=== PATIENT | female | born 2000 | race American Indian/Alaskan Native ===

== ENCOUNTER 2018-03-07 21:45 | Emergency (ER) | payer OTHER ==
[2018-03-07] MEDS ORDERED: DUONEB *Not for PRN Use IH ONE (22:04)
[2018-03-07 22:59] LABS: BUN/Creatinine Ratio 9; Blood Urea Nitrogen 6 mg/dL (7-17); Calcium 8.9 mg/dL (8.4-10.2); Hemolysis Index 2
[2018-03-07 23:09] LABS: Hematocrit 38.5 % (30.3-42.9); Hemoglobin 13.4 gm/dl (10.1-14.3); Mean Corpuscular HGB Conc 35 % (30-34); Mean Corpuscular Hemoglobin 31 pg (28-32); Mean Corpuscular Volume 88 fl (79-97); Red Blood Count 4.39 M/mm3 (3.65-5.03); Red Cell Distribution Width 13.7 % (13.2-15.2)
[2018-03-07 23:10] LABS: Basophils % (Auto) 0.2 % (0.0-1.8); Eosinophils # (Auto) 0.3 K/mm3 (0.0-0.4); Eosinophils % (Auto) 2.5 % (0.0-4.3); Monocytes # (Auto) 0.5 K/mm3 (0.0-0.8); Monocytes % (Auto) 4.2 % (0.0-7.3); Platelet Count 299 K/mm3 (140-440)
--- NOTE | 2018-03-07 23:59 | XRay Report ---
FINAL REPORT PROCEDURE: XR CHEST ROUTINE 2V TECHNIQUE: PA and lateral chest radiographs were obtained. CPT 07028 HISTORY: Shortness of breath COMPARISON: No prior studies are available for comparison. FINDINGS: Heart: Normal. Mediastinum/Vessels: Normal. Lungs/Pleural space: Normal. Bony thorax: No acute osseous abnormality. Other: IMPRESSION: Normal examination.
[2018-03-08] MEDS ORDERED: TYLENOL PO ONE (01:03)
[2018-03-08] MEDS ORDERED: TESSALON PERLES PO ONE (01:04)
[2018-03-08] MEDS ORDERED: MAGNESIUM SULFATE 2GM/50ML 2 GM/50 ML BAG IV ONE (01:04)
[2018-03-08] MEDS ORDERED: XOPENEX IH ONE (01:04)
[2018-03-08] MEDS ORDERED: ATROVENT IH ONE (01:04)
--- NOTE | 2018-03-08 01:30 | Emergency Department Report ---
ED Shortness of Breath HPI - General Chief Complaint: Dyspnea/Respdistress Stated Complaint: CHEST,STOMACH PAIN,ASTHMA Time Seen by Provider: 03/08/18 00:49 Source: patient Mode of arrival: Ambulatory Limitations: No Limitations - History of Present Illness Initial Comments: 18-year-old female the past medical history of type 2 diabetes and asthma presents to the hospital complaints of 3 days of wheezing and shortness of breath. No improvement with home treatments. She is not currently on steroids. Cough initially productive but now nonproductive. She complains of chest pressure and tightness as well as generalized abdominal soreness secondary to coughing spells. Patient recently traveled here from [place] via car 9 days ago. She denies pleuritic chest pain, calf tenderness, or unilateral leg edema. Patient states she has a history of baseline tachycardia in the past. No c/o fever but low-grade temp noted here in the ED. Denies previous history of intubations. - Related Data Previous Rx's Medication Instructions Recorded Last Taken Type ALBUTEROL NEB's [Proventil 0.083% 2.5 mg IH TID PRN #30 neb 03/08/18 Unknown Rx NEBS] Azithromycin [Zithromax Z-ЕЛЕНА] 1 dose PO DAILY 5 Days tab 03/08/18 Unknown Rx Benzonatate [Tessalon Perles] 100 mg PO Q8HR PRN #30 capsule 03/08/18 Unknown Rx predniSONE [Deltasone] 40 mg PO QDAY 5 Days tab 03/08/18 Unknown Rx Allergies Allergy/AdvReac Type Severity Reaction Status Date / Time No Known Allergies Allergy Verified 03/07/18 21:59 ED Review of Systems ROS: Stated complaint: CHEST,STOMACH PAIN,ASTHMA Other details as noted in HPI Comment: All other systems reviewed and negative ED Past Medical Hx - Past Medical History Previous Medical History?: Yes Hx Diabetes: Yes (type 2) Hx Asthma: Yes - Surgical History Past Surgical History?: No - Social History Smoking Status: Never Smoker Substance Use Type: None - Medications Home Medications: Home Medications Medication Instructions Recorded Confirmed Last Taken Type ALBUTEROL NEB's [Proventil 0.083% 2.5 mg IH TID PRN #30 neb 03/08/18 Unknown Rx NEBS] Azithromycin [Zithromax Z-ЕЛЕНА] 1 dose PO DAILY 5 Days tab 03/08/18 Unknown Rx Benzonatate [Tessalon Perles] 100 mg PO Q8HR PRN #30 capsule 03/08/18 Unknown Rx predniSONE [Deltasone] 40 mg PO QDAY 5 Days tab 03/08/18 Unknown Rx ED Physical Exam - General Limitations: No Limitations - Other Other exam information: General: No limitations, patient is alert in no acute distress Head exam: Atraumatic, normocephalic Eyes exam: Normal appearance, pupils equal reactive to light, extraocular movements intact ENT: Moist mucous membrane, normal oropharynx Neck exam: Normal inspection, full range of motion, no meningismus nontender Respiratory exam: Frequent dry cough, end expiratory wheezing Cardiovascular: Tachycardic regular rhythm Abdomen: Soft, nondistended, mild generalized tenderness, with normal bowel sounds, no rebound, or guarding Extremity: Full range of motion normal inspection no deformity, no calf tenderness or edema Back: Normal Inspection, full range of motion, no tenderness Neurologic: Alert, oriented x3, cranial nerves intact, no motor or sensory deficit Psychiatric: normal affect, normal mood Skin: Warm, dry, intact ED Course Vital Signs 03/07/18 03/07/18 03/08/18 21:49 22:00 00:52 Temperature 100.0 F H 100 F H Pulse Rate 123 H 123 H Pulse Rate [ Anterior Bilateral Throughout] Respiratory 24 16 14 Rate Respiratory Rate [Anterior Bilateral Throughout] Blood Pressure 163/107 163/107 Blood Pressure [Left] O2 Sat by Pulse 98 97 Oximetry 03/08/18 03/08/18 03/08/18 00:59 01:00 01:30 Temperature 99.7 F H Pulse Rate 118 H 115 H Pulse Rate [ 120 H Anterior Bilateral Throughout] Respiratory 17 19 Rate Respiratory 24 Rate [Anterior Bilateral Throughout] Blood Pressure 139/73 Blood Pressure 142/65 [Left] O2 Sat by Pulse 98 94 Oximetry 03/08/18 03/08/18 03/08/18 01:50 02:00 03:00 Temperature Pulse Rate 121 H 106 H Pulse Rate [ 126 H Anterior Bilateral Throughout] Respiratory 13 42 H Rate Respiratory 24 Rate [Anterior Bilateral Throughout] Blood Pressure 105/80 108/40 Blood Pressure [Left] O2 Sat by Pulse 98 95 Oximetry 03/08/18 03:58 Temperature Pulse Rate Pulse Rate [ Anterior Bilateral Throughout] Respiratory 23 Rate Respiratory Rate [Anterior Bilateral Throughout] Blood Pressure Blood Pressure [Left] O2 Sat by Pulse Oximetry ED Medical Decision Making - Lab Data Result diagrams: 03/07/18 22:13 03/07/18 22:13 Lab Results 03/07/18 03/07/18 03/07/18 Range/Units 22:13 22:13 22:13 WBC 10.6 (4.5-11.0) K/mm3 RBC 4.39 (3.65-5.03) M/mm3 Hgb 13.4 (10.1-14.3) gm/dl Hct 38.5 (30.3-42.9) % MCV 88 (79-97) fl MCH 31 (28-32) pg MCHC 35 H (30-34) % RDW 13.7 (13.2-15.2) % Plt Count 299 (140-440) K/mm3 Lymph % (Auto) 9.0 L (13.4-35.0) % Woodruff % (Auto) 4.2 (0.0-7.3) % Eos % (Auto) 2.5 (0.0-4.3) % Baso % (Auto) 0.2 (0.0-1.8) % Lymph # 1.0 L (1.2-5.4) K/mm3 Woodruff # 0.5 (0.0-0.8) K/mm3 Eos # 0.3 (0.0-0.4) K/mm3 Baso # 0.0 (0.0-0.1) K/mm3 Add Manual Diff Complete Seg Neutrophils % 84.1 H (40.0-70.0) % Seg Neutrophils # 8.9 H (1.8-7.7) K/mm3 D-Dimer (0-234) ng/mlDDU Sodium 138 (137-145) mmol/L Potassium 3.5 L (3.6-5.0) mmol/L Chloride 100.1 (98-107) mmol/L Carbon Dioxide 23 (22-30) mmol/L Anion Gap 18 mmol/L BUN 6 L (7-17) mg/dL Creatinine 0.7 (0.7-1.2) mg/dL Estimated GFR > 60 ml/min BUN/Creatinine Ratio 9 % Glucose 177 H (65-100) mg/dL Calcium 8.9 (8.4-10.2) mg/dL Troponin T < 0.010 (0.00-0.029) ng/mL TSH (0.270-4.200) mlU/mL Free T4 (0.76-1.46) ng/dL HCG, Qual Negative (Negative) 03/08/18 03/08/18 Range/Units 01:29 01:29 WBC (4.5-11.0) K/mm3 RBC (3.65-5.03) M/mm3 Hgb (10.1-14.3) gm/dl Hct (30.3-42.9) % MCV (79-97) fl MCH (28-32) pg MCHC (30-34) % RDW (13.2-15.2) % Plt Count (140-440) K/mm3 Lymph % (Auto) (13.4-35.0) % Woodruff % (Auto) (0.0-7.3) % Eos % (Auto) (0.0-4.3) % Baso % (Auto) (0.0-1.8) % Lymph # (1.2-5.4) K/mm3 Woodruff # (0.0-0.8) K/mm3 Eos # (0.0-0.4) K/mm3 Baso # (0.0-0.1) K/mm3 Add Manual Diff Seg Neutrophils % (40.0-70.0) % Seg Neutrophils # (1.8-7.7) K/mm3 D-Dimer 231.49 (0-234) ng/mlDDU Sodium (137-145) mmol/L Potassium (3.6-5.0) mmol/L Chloride (98-107) mmol/L Carbon Dioxide (22-30) mmol/L Anion Gap mmol/L BUN (7-17) mg/dL Creatinine (0.7-1.2) mg/dL Estimated GFR ml/min BUN/Creatinine Ratio % Glucose (65-100) mg/dL Calcium (8.4-10.2) mg/dL Troponin T (0.00-0.029) ng/mL TSH 1.530 (0.270-4.200) mlU/mL Free T4 1.25 (0.76-1.46) ng/dL HCG, Qual (Negative) - EKG Data -: EKG Interpreted by [facility] EKG shows normal: sinus rhythm, axis (qrs 61), QRS complexes (qrsd 86), ST-T waves (no stemi/t inv) Rate: tachycardia (123) - EKG Data When compared to previous EKG there are: previous EKG unavailable - Radiology Data Radiology results: report reviewed cxr IMPRESSION: Normal examination. - Medical Decision Making Patient presents with tachycardia status she has a elevated heart rate. Given her recent travel a d-dimer was sent. Patient has a low pretest probability and a negative d-dimer therefore she is at low risk for pulmonary embolism. Thyroid tests are normal. After nebs heart rate for the increased with a subtle bike down to low 100s after a period of ED evaluation and a liter normal saline. After signing gradual, magnesium, and soap and patient feels better. She will be discharged home on Z-Елена, Tessalon Perles, and steroids. Patient received by mouth potassium for mild hypokalemia. - Differential Diagnosis asthma, bronchitis, pneumonia, PE Critical Care Time: No Critical care attestation.: If time is entered above; I have spent that time in minutes in the direct care of this critically ill patient, excluding procedure time. ED Disposition Clinical Impression: Acute bronchitis with asthma, Hypokalemia Disposition: DC- TO HOME OR SELFCARE Is pt being admited?: No Does the pt Need Aspirin: No Condition: Stable Instructions: Acute Bronchitis (ED) Additional Instructions: Take the medications as prescribed. Return if symptoms worsen. Follow up with the doctor or clinic provided. Prescriptions: ALBUTEROL NEB's [Proventil 0.083% NEBS] 2.5 mg IH TID PRN #30 neb PRN Reason: Wheezing Azithromycin [Zithromax Z-ЕЛЕНА] 1 dose PO DAILY 5 Days tab Benzonatate [Tessalon Perles] 100 mg PO Q8HR PRN #30 capsule PRN Reason: Cough predniSONE [Deltasone] 40 mg PO QDAY 5 Days tab Referrals: BETTY BRAVO MD [Primary Care Provider] - 3-5 Days [facility] [Provider Group] - 3-5 Days Time of Disposition: 04:28
[2018-03-08 02:06] LABS: Free T4 (Free Thyroxine) 1.25 ng/dL (0.76-1.46)
[2018-03-08] MEDS ORDERED: NACL 0.9% 1000 ML 1,000 ML IV ONE (02:26)
[2018-03-08] MEDS ORDERED: K-DUR PO ONE (03:16)
[2018-03-08 03:58] VITALS: BP 108/40
== END 2018-03-08 05:04 | disposition home or self-care (01) ==
LOC: ED 21:45
DX: J20.9 Acute bronchitis, unspecified (principal); J45.909 Unspecified asthma, uncomplicated; E87.6 Hypokalemia; E11.9 Type 2 diabetes mellitus without complications
CPT/HCPCS: 36415; 71046; 80048; 84439; 84443; 84484; 84703; 85025; 85379; 93005; 93010; 94640; 96361; 96365; 96375; 99284; J2930; J3475; J7030